=== PATIENT | female | born 1990 | race Caucasian/White ===

== ENCOUNTER 2016-12-28 01:54 | Emergency (ER) | payer OTHER ==
[~2016-12-28] VITALS: Ht 167.6 cm; Wt 79.6 kg
[~2016-12-28 01:54] MED LIST: FLEXERIL5 MG PO; NAPROSYN500 MG PO; TRAMADOL HCL50 MG PO; ZOFRAN4 MG PO
[2016-12-28 02:55] LABS: HEMATOCRIT 33.7 % (36.0-46.0); MCH 25.3 PG (29.0-34.0); MCHC 31.5 G/DL (30.0-36.0); MCV 80.4 FL (83-99); MEAN PLAT.VOLUME 10.6 uM^3 (9.5-12.4); PLATELET COUNT 247 K/uL (156-360); RBC DIS.WIDTH-CV 14.6 % (11.8-14.6); RBC DIS.WIDTH-SD 42.7 % (39-53); RED BLOOD COUNT 4.19 M/uL (3.80-5.20); WHITE BLOOD COUNT 7.9 K/uL (4.1-10.2)
[2016-12-28 03:09] LABS: CHLORIDE 107 mEq/L (99-109); POTASSIUM 3.8 mEq/L (3.7-5.4); SODIUM 139 mEq/L (136-147)
[2016-12-28 03:11] LABS: GLUCOSE 94 mg/dL (70-99)
[2016-12-28 03:12] LABS: ANION GAP 9 MEQ/L (2-14)
[2016-12-28 03:15] LABS: GFR ESTIMATE (CALCULATED) > 59 mL/min/
[2016-12-28 03:16] LABS: UREA NITROGEN (BUN) 10 mg/dL (9-23)
[2016-12-28 03:23] LABS: TROP-I INTERPRETATION NEGATIVE; TROPONIN-I < 0.01 ng/mL (0.0-0.30)
[2016-12-28 04:15] VITALS: BP 149/94
== END 2016-12-28 04:18 | disposition home or self-care (01) ==
LOC: EME 01:54
PROVIDERS: Emergency Medicine
DX: S06.0X0A Concussion without loss of consciousness, initial encounter (principal); M54.2 Cervicalgia; R07.9 Chest pain, unspecified; V49.40XA Driver injured in collision with unspecified motor vehicles in traffic accident, initial encounter
CPT/HCPCS: 70450; 71020; 72125; 80048; 84484; 85027; 93005; 99281; 99285

== ENCOUNTER 2017-04-17 19:22 | Emergency (ER) | payer OTHER ==
[~2017-04-17] VITALS: Ht 162.6 cm; Wt 79.0 kg
[2017-04-17] MEDS ORDERED: ULTRAM50 MG PO (20:35)
[2017-04-17] MEDS ORDERED: NAPROSYN500 MG PO (20:35)
[2017-04-17 22:49] VITALS: BP 145/97
== END 2017-04-17 22:49 | disposition home or self-care (01) ==
LOC: EME 19:22
DX: S00.83XA Contusion of other part of head, initial encounter (principal); S40.019A Contusion of unspecified shoulder, initial encounter; Y04.8XXA Assault by other bodily force, initial encounter; W18.30XA Fall on same level, unspecified, initial encounter
CPT/HCPCS: 70150; 71020; 99281; 99283

== ENCOUNTER 2017-04-20 13:27 | Emergency (ER) | payer OTHER ==
[~2017-04-20] VITALS: Ht 162.6 cm; Wt 80.9 kg
[~2017-04-20 13:27] MED LIST changes: +ULTRAM50 MG PO
[2017-04-20] MEDS ORDERED: ZOFRAN ODT4 MG PO (15:47)
[2017-04-20 16:43] VITALS: BP 134/84
== END 2017-04-20 16:27 | disposition home or self-care (01) ==
LOC: EME 13:27
DX: S06.0X0A Concussion without loss of consciousness, initial encounter (principal); Y04.0XXA Assault by unarmed brawl or fight, initial encounter
CPT/HCPCS: 99281; 99284

== ENCOUNTER 2017-07-19 12:23 | Emergency (ER) | payer OTHER ==
[~2017-07-19] VITALS: Ht 162.6 cm; Wt 85.2 kg
[~2017-07-19 12:23] MED LIST changes: +ZOFRAN ODT4 MG PO
[2017-07-19 12:27] VITALS: BP 153/96
== END 2017-07-19 13:42 | disposition left against medical advice (07) ==
LOC: EME 12:23
DX: R42 Dizziness and giddiness (principal); R20.0 Anesthesia of skin; Z53.21 Procedure and treatment not carried out due to patient leaving prior to being seen by health care provider
CPT/HCPCS: 80048; 84702; 85027

== ENCOUNTER 2017-12-24 11:01 | Emergency (ER) | payer OTHER ==
[~2017-12-24] VITALS: Ht 162.6 cm; Wt 85.0 kg
[2017-12-24 11:47] LABS: ALBUMIN 4.3 g/dL (3.2-4.8)
[2017-12-24 11:48] LABS: CHLORIDE 106 mEq/L (99-109); POTASSIUM 4.1 mEq/L (3.7-5.4); SODIUM 138 mEq/L (136-147)
[2017-12-24 11:50] LABS: GLUCOSE 98 mg/dL (70-99); HEMATOCRIT 36.5 % (36.0-46.0); HEMOGLOBIN 11.6 G/DL (11.9-15.5); MCH 24.7 PG (29.0-34.0); MCHC 31.8 G/DL (30.0-36.0); MCV 77.8 FL (83-99); RBC DIS.WIDTH-CV 15.3 % (11.8-14.6); RBC DIS.WIDTH-SD 42.9 % (39-53); RED BLOOD COUNT 4.69 M/uL (3.80-5.20); TOTAL PROTEIN 7.2 g/dL (6.4-8.3); WHITE BLOOD COUNT 7.8 K/uL (4.1-10.2)
[2017-12-24 11:52] LABS: TOTAL BILIRUBIN 0.3 mg/dL (0.0-1.0)
[2017-12-24 11:53] LABS: ALKALINE PHOSPHATASE 63 IU/L (3-129)
[2017-12-24 11:54] LABS: CREATININE 0.8 mg/dL (0.6-1.3); GFR ESTIMATE (CALCULATED) > 59 mL/min/
[2017-12-24 11:55] LABS: AST (GOT) 19 IU/L (2-34); UREA NITROGEN (BUN) 8 mg/dL (9-23)
[2017-12-24 11:57] LABS: ALT (GPT) 16 IU/L (3-49); LIPASE 49 U/L (1.0-51.0)
[2017-12-24 12:02] LABS: QUANTITATIVE HCG < 4.0 MIU/ML
[2017-12-24 12:11] LABS: APPEARANCE CLEAR ((CLEAR)); BILIRUBIN NEGATIVE; BLOOD NEGATIVE; COLOR STRAW ((YELLOW)); GLUCOSE (STRIP) NEGATIVE; KETONES NEGATIVE; LEUKOCYTES NEGATIVE; NITRITE NEGATIVE; PROTEIN (STRIP) NEGATIVE; SPECIFIC GRAVITY 1.011 (1.000-1.030); UCUL ADDED? NO; UROBILINOGEN 0.2 MG/DL (0.2-1.0)
[2017-12-24 13:00] LABS: PLAT.SUFFICIENCY ADEQUATE; PLATELET COUNT 267 K/uL (156-360)
[2017-12-24 14:03] VITALS: BP 117/75
== END 2017-12-24 14:04 | disposition home or self-care (01) ==
LOC: EME 11:01
PROVIDERS: Physician Assistant
DX: N83.01 Follicular cyst of right ovary (principal); R10.32 Left lower quadrant pain; K92.1 Melena
CPT/HCPCS: 74177; 80053; 81003; 83690; 84702; 85027; 99281; 99284; J7030